=== PATIENT | female | born 1975 | race Caucasian/White ===

== ENCOUNTER 2018-09-28 09:40 | Emergency (ER) | payer OTHER ==
[2018-09-28 09:52] VITALS: BP 103/68
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
[2018-09-28] MEDS ORDERED: Ibuprofen TAB* 400 MG PO ONE (10:23)
== END 2018-09-28 11:18 | disposition home or self-care (01) ==
LOC: UCEAST 09:40
DX: S09.90XA Unspecified injury of head, initial encounter (principal); S80.211A Abrasion, right knee, initial encounter; M54.6 Pain in thoracic spine; M54.2 Cervicalgia; V18.0XXA Pedal cycle driver injured in noncollision transport accident in nontraffic accident, initial encounter; Y93.55 Activity, bike riding; Y92.9 Unspecified place or not applicable; Z88.8 Allergy status to other drugs, medicaments and biological substances
CPT/HCPCS: 70450; 72125; 99213; A9270-GY; G0463